=== PATIENT | male | born 1995 | race Caucasian/White ===

== ENCOUNTER 2018-04-06 02:18 | Emergency (ER) | payer OTHER ==
[2018-04-06] MEDS ORDERED: IBUPROFEN 200 MG TAB PO ONE (03:03)
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
[2018-04-06 04:26] VITALS: BP 118/68
== END 2018-04-06 04:28 | disposition home or self-care (01) ==
PROC: 0HQ0XZZ Repair Scalp Skin, External Approach (ICD-10-PCS; principal; 2018-04-06)
DX: S02.2XXA Fracture of nasal bones, initial encounter for closed fracture (principal); S01.01XA Laceration without foreign body of scalp, initial encounter; S06.9X1A Unspecified intracranial injury with loss of consciousness of 30 minutes or less, initial encounter; Y04.0XXA Assault by unarmed brawl or fight, initial encounter; Y99.8 Other external cause status; Y93.89 Activity, other specified